=== PATIENT | female | born 1955 | race Caucasian/White ===

== ENCOUNTER 2024-07-12 14:01 | Outpatient (CLI) | payer MEDICARE, MEDICAID ==
[~2024-07-12] VITALS: Ht 160 cm; Wt 77.6 kg
[2024-07-12] MEDS: albuterol 2.5 MG/3 ML nebule NEB ONE (14:48)
[2024-07-12 14:54] VITALS: PULSE 111; RESP 18; O2SAT 95
[2024-07-12 15:06] VITALS: PULSE 108; RESP 18
== END 2024-07-12 23:59 | disposition home or self-care (01) ==
LOC: RT 14:01
PROVIDERS: ATTEND Family Medicine
DX: R06.02 Shortness of breath (principal)
CPT/HCPCS: 94060; 94729; 94760